=== PATIENT | female | born 1990 | race Caucasian/White ===

== ENCOUNTER → 2022-11-12 | Outpatient (CLI) | payer SELFPAY ==
[2022-11-12 15:47] LABS: hCG Titer Quant., Serum < 1 mIU/mL (1-3)
[2022-11-15 16:08] LABS: Dilute Prothrombin Time (dPT) 35.4 sec (0.0-47.6); Dilute Russell Viper Venom 35.3 sec (0.0-47.0); PTT-LA 34.2 sec (0.0-51.9); Thrombin Time 18.6 sec (0.0-23.0); dPT Confirm Ratio 1.07 Ratio (0.00-1.34)
[2022-11-15 20:52] LABS: Anti-Cardiolipin Ab, IgG, Qn < 9 GPL U/mL (0-14); Anti-Cardiolipin Ab, IgM, Qn 15 MPL U/mL (0-12); Interpretation Comment: (.)
[2022-11-17 15:34] LABS: Beta-2-Microglobulin, S 1.5 mg/L (0.6-2.4)
== END | disposition home or self-care (01) ==
PROVIDERS: Visit Provider Student in an Organized Health Care Education/Training Program
DX: N96 Recurrent pregnancy loss (principal)
CPT/HCPCS: 36415; 82232; 84702; 86147

== ENCOUNTER → 2022-12-18 | Outpatient (CLI) | payer SELFPAY ==
[2022-12-18 11:56] LABS: Hemoglobin A1c 4.8 % (3.8-5.6)
[2022-12-18 12:10] LABS: Estradiol 71.6 pg/mL; Follicle Stimulating Hormone 5.8 mIU/mL; Luteinizing Hormone 8.7 mIU/mL; Prolactin 33.3 ng/mL
[2022-12-18 12:14] LABS: Rubella IgG Reactive (Nonreactive)
[2022-12-20 20:30] LABS: V-Zoster Virus Acute IgM 0.95 index (0.00-0.90)
== END | disposition home or self-care (01) ==
LOC: WOBLAB 11:12
PROVIDERS: Visit Provider Student in an Organized Health Care Education/Training Program
DX: N97.9 Female infertility, unspecified (principal)
CPT/HCPCS: 36415; 82670; 83001; 83002; 83036; 84146; 86762; 86787

== ENCOUNTER → 2023-01-10 | Outpatient (CLI) | payer SELFPAY ==
--- NOTE | 2023-01-10 11:39 | RAD_ITS ---
STUDY: HYSTEROSALPINGOGRAM. REASON FOR EXAM: Female, 32 years old. INFERTILITY FLUOROSCOPY TIME (if supplied): ( 44 seconds ) minutes/seconds. 3 images were submitted. TECHNIQUE: A hysterosalpingogram was performed by the employee relations consultant. Imaging was provided. COMPARISON: None. FINDINGS: The uterus is unremarkable. There is patency of the right fallopian tube. RAD/Salpingogram IMPRESSION: Patency of the right fallopian tube. Electronically Signed: Robin Nguyen MD at 13:44 EST ,
== END | disposition home or self-care (01) ==
LOC: RAD 11:36
PROVIDERS: Referring Provider Student in an Organized Health Care Education/Training Program; Visit Provider Student in an Organized Health Care Education/Training Program
DX: N97.9 Female infertility, unspecified (principal)
CPT/HCPCS: 58340; 74740; Q9967